=== PATIENT | male | born 1995 | race Caucasian/White ===

== ENCOUNTER 2020-04-03 12:25 | Emergency (ER) | payer SELFPAY ==
[~2020-04-03 12:25] MED LIST: AMPDEX5; Percocet 5-3251 EACH PO; RXCODACESY PO; VICODIN 5-3001 EACH PO
[2020-04-04] MEDS ORDERED: Norco 5-325 Ta1 EACH PO (23:53)
[2020-04-04] MEDS ORDERED: IBUP600 PO (23:53)
== END 2020-04-03 13:33 | disposition left against medical advice (07) ==
LOC: ER 12:25
DX: Z53.21 Procedure and treatment not carried out due to patient leaving prior to being seen by health care provider (principal)

== ENCOUNTER 2020-04-04 20:30 | Emergency (ER) | payer OTHER ==
[~2020-04-04] VITALS: Ht 188 cm; Wt 86.2 kg
[2020-04-04] MEDS ORDERED: Norco 5-325 Ta1 EACH PO (23:53)
[2020-04-04] MEDS ORDERED: IBUP600 PO (23:53)
== END 2020-04-05 00:35 | disposition home or self-care (01) ==
LOC: ER 20:30
DX: S62.302A Unspecified fracture of third metacarpal bone, right hand, initial encounter for closed fracture (principal); F17.200 Nicotine dependence, unspecified, uncomplicated; Y04.0XXA Assault by unarmed brawl or fight, initial encounter
CPT/HCPCS: 73120; 73130; 99283-25; A9270-GY

== ENCOUNTER 2020-07-14 04:21 | Emergency (ER) | payer OTHER ==
[~2020-07-14] VITALS: Ht 182.9 cm; Wt 86.2 kg
[~2020-07-14 04:21] MED LIST changes: +IBUP600 PO; +Norco 5-325 Ta1 EACH PO
== END 2020-07-14 07:53 | disposition home or self-care (01) ==
LOC: ER 04:21
DX: T59.3X3A Toxic effect of lacrimogenic gas, assault, initial encounter (principal); H10.213 Acute toxic conjunctivitis, bilateral; F17.290 Nicotine dependence, other tobacco product, uncomplicated; F12.90 Cannabis use, unspecified, uncomplicated
CPT/HCPCS: 99283